=== PATIENT | male | born 1990 | race Caucasian/White ===

== ENCOUNTER 2024-03-02 17:58 | Emergency (ER) | payer SELFPAY ==
[2024-03-02 18:02] VITALS: BP 114/75; PULSE 84; RESP 17; TEMP 36.6; O2SAT 98; BMI 27.1
--- NOTE | 2024-03-02 18:31 | ECG_ITS ---
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 Measurements Intervals [place] Rate: 78 P: 54 WA: 188 QRS: 24 QRSD: 123 T: 35 QT: 380 QTc: 434 Interpretive Statements SINUS RHYTHM MODERATE INTRAVENTRICULAR CONDUCTION DELAY [110+ ms QRS DURATION] Compared to ECG 10/23/2018 15:30:50 Intraventricular conduction delay now present Sinus arrhythmia no longer present Electronically Signed On 03-03-2024 11:44:38 CDT by Carlitos Olmos M.D. [id number]
--- NOTE | 2024-03-02 18:31 | XRR_ITS ---
PROCEDURE INFORMATION: Exam: XR Chest Exam date and time: 03/02/2024 6:47 PM Age: 33 years old Clinical indication: Chest pressure; Patient HX: C/O chest pain; Additional info: Cp TECHNIQUE: Imaging protocol: Radiologic exam of the chest. Views: 1 view. COMPARISON: CR XR chest 1V [id number] 04/06/2019 8:32 AM FINDINGS: Lungs: Unremarkable. No consolidation. Pleural spaces: Unremarkable. No pleural effusion. No pneumothorax. Heart/Mediastinum: Unremarkable. No cardiomegaly. Bones/joints: Unremarkable. XR/XR chest 1V portable [id number] IMPRESSION: No acute findings.
--- NOTE | 2024-03-02 18:33 | W.ED.NAVMDI ---
Documented by User: WARREN Gurrola 03/02/24 20:15 HPI - Nausea/Vomiting/Diarrhea General: Chief complaint: Nausea/Vomiting/Diarrhea Stated complaint: N/V, Fever Time Seen by Provider: 03/02/24 18:13 Source: patient Mode of arrival: ambulatory Limitations: no limitations History of Present Illness: Patient is a 33-year-old male presenting to the emergency department complaining of nausea vomiting and diarrhea for the past 3 days. Patient is also noting some left-sided chest pain that he has had for 6 months. States he had this worked up at [facility] in [place], which saw him shipped to [facility] for further cardiac evaluation. He does not elaborate anymore on this. Currently he states he is having difficulty keeping down food and drink. Has not taken anything for his symptoms. He is noting some diffuse crampy abdominal pain. He also is noting a fever. No other symptoms to report at this time. MD elicited complaint: nausea, vomiting, diarrhea and abdominal pain Onset (ago): day(s) Associated nausea: Yes Associated abdominal pain: Yes Location of pain: Diffuse Quality: cramping Associated symtoms: Reports nausea; Denies change in vision, chest pain, dysuria, fatigue, headache(s) or palpitations Review of Systems General: Reports: 10 or more systems reviewed and unremarkable except in HPI and below Const: Reports: fever(s); Denies: chills or fatigue Eyes: Denies: change in vision ENMT: Denies: throat pain, ear or mastoid pain or nasal discharge Card: Denies: chest pain, palpitations, swelling of feet/ankles or lightheadedness Resp: Denies: dyspnea, productive cough or wheezing GI: Reports: abdominal pain, nausea, vomiting, diarrhea and GI cramping : Denies: flank pain, difficulty urinating, dysuria or urinary frequency Musc: Denies: neck pain, back pain or joint pain Skin/Breast: Denies: rash Neuro: Denies: headache(s), numbness in extremities or weakness in extremities Physical Exam Const: COMMON NORMALS: no acute distress, average body habitus, patient oriented x3, no limitations, healthy appearing, alert and well nourished GENERAL APPEARANCE: cooperative and comfortable ORIENTATION/CONSCIOUSNESS: Yes awake HENMT: COMMON NORMALS: normocephalic, atraumatic, hearing grossly normal bilaterally, external ears normal, Normal external nose present, Normal nasal mucous membranes and turbinates present and moist oral mucous membranes HEAD & SCALP: normocephalic and atraumatic NOSE: Normal external nose present and Normal nasal mucous membranes and turbinates present EXTERNAL EAR: Yes external ears normal Eye: COMMON NORMALS: Equal, round and reactive pupils present, EOMs intact bilaterally, conjunctivae normal and normal visual andrade by confrontation CONJUNCTIVA: Yes conjunctivae normal PUPIL: Yes Equal, round and reactive pupils present Neck/C-Spine: COMMON NORMALS: full ROM, supple, no meningeal signs and no JVD Resp: COMMON NORMALS: normal respiratory effort, No retractions, No use of accessory muscles and clear to auscultation bilaterally AUSCULTATION: clear to auscultation bilaterally, no crackles, no rales, no rhonchi and no wheezes Cardio: COMMON NORMALS: no JVD, regular rate, regular rhythm, S1 normal heart sound present, S2 normal heart sound present, No gallops present (Cardio), No clicks present (Cardio), No murmurs present (Cardio), No rub (Cardio) and Peripheral pulses 2+ throughout RATE: regular rate RHYTHM: regular rhythm HEART SOUNDS: S1 normal heart sound present and S2 normal heart sound present PERIPHERAL PULSES: Peripheral pulses 2+ throughout GI: COMMON NORMALS: Normal to inspection, nondistended, normoactive bowel sounds present, Soft to palpation, No hepatosplenomegaly present and no masses AUSCULTATION: Yes normoactive bowel sounds PALPATION: Yes Soft to palpation, Yes Tenderness to palpation present (GI) (Diffuse, mild), No Guarding due to palpation present (GI), No Rigid due to palpation and Yes No hepatosplenomegaly present RECTAL EXAM: Yes deferred : COMMON NORMALS: Yes no CVA tenderness BLADDER/KIDNEY EXAM: Yes no CVA tenderness Back/Pelvis: COMMON NORMALS: no CVA tenderness Extremity: COMMON NORMALS: normal to inspection and full ROM Neuro: COMMON NORMALS: patient oriented x3, moves all extremities, no focal motor deficits and no sensory deficits noted SENSORIUM/ORIENTATION: Yes alert MENINGEAL SIGNS: Yes no meningeal signs Psych: COMMON NORMALS: mental status grossly normal, cooperative and speech normal SPEECH: Yes normal speech Skin: COMMON NORMALS: no rashes or lesions noted GENERAL SKIN EXAM: no rashes or lesions noted Course Vital Signs: Vital signs: Vital Signs Temperature 98 F 03/02/24 20:30 Pulse Rate 79 03/02/24 20:30 Respiratory Rate 16 03/02/24 20:30 Blood Pressure 116/72 03/02/24 20:30 Pulse Oximetry 99 03/02/24 20:30 Oxygen Delivery Me thod Room Air 03/02/24 18:02 MDM - Nausea/Vomiting/Diarrhea Medical Decision Making Patient presented for nausea vomiting and diarrhea for the past few days. On arrival vitals unremarkable as he was afebrile and his condition has remained stable throughout ED course. Examination unremarkable. He was reporting some left-sided chest pain, though this has been chronic for the past 6 months and has been worked up prior. Chest x-ray and EKG were unremarkable. His lab work was unremarkable. Respiratory panel currently pending. I do believe patient is dealing with a viral gastroenteritis and he does report feeling better after receiving bolus of fluids and Reglan. Will send home with nausea medications with proper return precautions given. Patient will follow-up primary care. Lab Data 03/02/24 18:50 03/02/24 18:50 Radiology Impressions Chest X-Ray 03/02/24 18:31 IMPRESSION: No acute findings. Laboratory Results WBC 8.09 10^3/uL (3.29-11.43) 03/02/24 18:50 RBC 4.80 10^6/uL (3.85-5.65) 03/02/24 18:50 Hgb 14.60 g/dL (11.27-16.99) 03/02/24 18:50 Hct 43.7 % (37-53) 03/02/24 18:50 MCV 91.0 fl (82-101) 03/02/24 18:50 MCH 30.4 pg (27-33) 03/02/24 18:50 MCHC 33.4 g/dL (30-55) 03/02/24 18:50 RDW 13.0 % (12.1-15.1) 03/02/24 18:50 Plt Count 275 10^3/cmm (157-399) 03/02/24 18:50 MPV 10.4 fL (7.4-10.4) 03/02/24 18:50 Neut % (Auto) 63.9 % 03/02/24 18:50 Lymph % (Auto) 22.2 % 03/02/24 18:50 [place] % (Auto) 12.1 % 03/02/24 18:50 Eos % (Auto) 1.1 % 03/02/24 18:50 Baso % (Auto) 0.6 % 03/02/24 18:50 Neut # (Auto) 5.16 10^3/uL (1.8-7.7) 03/02/24 18:50 Lymph # (Auto) 1.8 10^3/uL (0.8-4.8) 03/02/24 18:50 [place] # (Auto) 1.0 10^3/uL (0.2-0.9) H 03/02/24 18:50 Eos # (Auto) 0.1 10^3/uL (0.0-0.8) 03/02/24 18:50 Baso # (Auto) 0.1 10^3/uL (0.0-0.1) 03/02/24 18:50 Nucleated RBC % (auto) 0 % 03/02/24 18:50 Nucleated RBCs # 0.0 /100WBC 03/02/24 18:50 Sodium 140 mmol/L (136-145) 03/02/24 18:50 Potassium 3.4 mmol/L (3.5-5.1) L 03/02/24 18:50 Chloride 100 mmol/L (98-107) 03/02/24 18:50 Carbon Dioxide 30 mmol/L (22-29) H 03/02/24 18:50 Anion Gap 13.4 (5-19) 03/02/24 18:50 BUN 16 mg/dL (6-20) 03/02/24 18:50 Creatinine 0.9 mg/dL (0.7-1.2) 03/02/24 18:50 GFR Calculation 96.6 mL/min (90-130) 03/02/24 18:50 Glucose 100 mg/dL (65-115) 03/02/24 18:50 Calculated Osmolality 291 mOsm/kg (285-295) 03/02/24 18:50 Calcium 8.4 mg/dL (8.5-10.5) L 03/02/24 18:50 Total Bilirubin 0.2 mg/dL (0.15-1.2) 03/02/24 18:50 AST 25 U/L (0-40) 03/02/24 18:50 ALT 26 U/L (0-41) 03/02/24 18:50 Alkaline Phosphatase 98 U/L (40-130) 03/02/24 18:50 Total Protein 7.1 g/dL (6.6-8.7) 03/02/24 18:50 Albumin 4.2 g/dL (3.5-5.2) 03/02/24 18:50 Globulin 2.9 g/dL (1.3-4.6) 03/02/24 18:50 Lipase 20 U/L (13-60) 03/02/24 18:50 Urine Color Dark yellow (Yellow) 03/02/24 18:50 Urine Appearance Clear (CLEAR) 03/02/24 18:50 Urine pH 5 (5-7) 03/02/24 18:50 Ur Specific P[place] 1.025 (1.005-1.030) 03/02/24 18:50 Urine Protein Neg (Negative) 03/02/24 18:50 Urine Glucose (UA) Norm (Normal) 03/02/24 18:50 Urine Ketones Negative (Negative) 03/02/24 18:50 Urine Blood Neg (Negative) 03/02/24 18:50 Urine Nitrate Negative (Negative) 03/02/24 18:50 Urine Bilirubin 1+ (Negative) H 03/02/24 18:50 Urine Urobilinogen 4 mg/dL (Negative) H 03/02/24 18:50 Ur Leukocyte Esterase Negative (Negative) 03/02/24 18:50 Adenovirus (PCR) Not detected (NOT DETECT) 03/02/24 19:00 C. pneumoniae DNA (PCR) Not detected (NOT DETECT) 03/02/24 19:00 Coronavirus 229E (PCR) Not detected (NOT DETECT) 03/02/24 19:00 Human Metapneumovir PCR Not detected (NOT DETECT) 03/02/24 19:00 Influenza A (H1) PCR Not detected (NOT DETECT) 03/02/24 19:00 Influ A (H1/09) PCR Not detected (NOT DETECT) 03/02/24 19:00 Influenza A (H3) PCR Not detected (NOT DETECT) 03/02/24 19:00 Influenza Type A (PCR) Not detected (NOT DETECT) 03/02/24 19:00 Influenza Type B (PCR) Not detected (NOT DETECT) 03/02/24 19:00 M. pneumoniae (PCR) Not detected (NOT DETECT) 03/02/24 19:00 Parainfluenza 1 (PCR) Not detected (NOT DETECT) 03/02/24 19:00 Parainfluenza 2 (PCR) Not detected (NOT DETECT) 03/02/24 19:00 Parainfluenza 3 (PCR) Not detected (NOT DETECT) 03/02/24 19:00 Parainfluenza 4 (PCR) Not detected (NOT DETECT) 03/02/24 19:00 RSV Type A (PCR) Not detected (NOT DETECT) 03/02/24 19:00 RSV Type B (PCR) Not detected (NOT DETECT) 03/02/24 19:00 Entero/Rhino (PCR) Not detected (NOT DETECT) 03/02/24 19:00 SARS-CoV-2 (PCR) Not detected (NOT DETECT) 03/02/24 19:00 All radiology interpretation(s) finalized by discharge Discharge Plan Discharge Patient Disposition: Home Clinical Impression: Viral gastroenteritis Condition: Stable Prescriptions: New ondansetron HCl 4 mg tablet 4 mg PO Q8H Qty: 30 0RF Discharge Orders: Discharge ED (Routine); Ordered 03/02/24 Ordered By: Antonio Vallejo Referrals: Karli Matamoros MD [Primary Care Provider] - Discharge Diet: As Directed Discharge Activity: Increase activity as tolerated Patient Instructions: Gastroenteritis (ED) Activity Restrictions/Additional Instructions: Nausea medications. Plenty of fluids. Contagion precaution. Return with any new or worsening. Follow-up with primary care. Coding Level of Care Code ED Electrical Parts Reconditioner for Chg Fwd Documented by User: Ishmael Stearns DO 03/04/24 16:55 HPI - Nausea/Vomiting/Diarrhea General: Chief complaint: Nausea/Vomiting/Diarrhea Stated complaint: N/V, Fever Time Seen by Provider: 03/02/24 18:13 Course Vital Signs: Vital signs: Vital Signs Temperature 98 F 03/02/24 20:30 Pulse Rate 79 03/02/24 20:30 Respiratory Rate 16 03/02/24 20:30 Blood Pressure 116/72 03/02/24 20:30 Pulse Oximetry 99 03/02/24 20:30 Oxygen Delivery Me thod Room Air 03/02/24 18:02 MDM - Nausea/Vomiting/Diarrhea Medical Decision Making Patient presented for nausea vomiting and diarrhea for the past few days. On arrival vitals unremarkable as he was afebrile and his condition has remained stable throughout ED course. Examination unremarkable. He was reporting some left-sided chest pain, though this has been chronic for the past 6 months and has been worked up prior. Chest x-ray and EKG were unremarkable. His lab work was unremarkable. Respiratory panel currently pending. I do believe patient is dealing with a viral gastroenteritis and he does report feeling better after receiving bolus of fluids and Reglan. Will send home with nausea medications with proper return precautions given. Patient will follow-up primary care. Chart reviewed Lab Data 03/02/24 18:50 03/02/24 18:50 Radiology Impressions Chest X-Ray 03/02/24 18:31 IMPRESSION: No acute findings. Laboratory Results WBC 8.09 10^3/uL (3.29-11.43) 03/02/24 18:50 RBC 4.80 10^6/uL (3.85-5.65) 03/02/24 18:50 Hgb 14.60 g/dL (11.27-16.99) 03/02/24 18:50 Hct 43.7 % (37-53) 03/02/24 18:50 MCV 91.0 fl (82-101) 03/02/24 18:50 MCH 30.4 pg (27-33) 03/02/24 18:50 MCHC 33.4 g/dL (30-55) 03/02/24 18:50 RDW 13.0 % (12.1-15.1) 03/02/24 18:50 Plt Count 275 10^3/cmm (157-399) 03/02/24 18:50 MPV 10.4 fL (7.4-10.4) 03/02/24 18:50 Neut % (Auto) 63.9 % 03/02/24 18:50 Lymph % (Auto) 22.2 % 03/02/24 18:50 [place] % (Auto) 12.1 % 03/02/24 18:50 Eos % (Auto) 1.1 % 03/02/24 18:50 Baso % (Auto) 0.6 % 03/02/24 18:50 Neut # (Auto) 5.16 10^3/uL (1.8-7.7) 03/02/24 18:50 Lymph # (Auto) 1.8 10^3/uL (0.8-4.8) 03/02/24 18:50 [place] # (Auto) 1.0 10^3/uL (0.2-0.9) H 03/02/24 18:50 Eos # (Auto) 0.1 10^3/uL (0.0-0.8) 03/02/24 18:50 Baso # (Auto) 0.1 10^3/uL (0.0-0.1) 03/02/24 18:50 Nucleated RBC % (auto) 0 % 03/02/24 18:50 Nucleated RBCs # 0.0 /100WBC 03/02/24 18:50 Sodium 140 mmol/L (136-145) 03/02/24 18:50 Potassium 3.4 mmol/L (3.5-5.1) L 03/02/24 18:50 Chloride 100 mmol/L (98-107) 03/02/24 18:50 Carbon Dioxide 30 mmol/L (22-29) H 03/02/24 18:50 Anion Gap 13.4 (5-19) 03/02/24 18:50 BUN 16 mg/dL (6-20) 03/02/24 18:50 Creatinine 0.9 mg/dL (0.7-1.2) 03/02/24 18:50 GFR Calculation 96.6 mL/min (90-130) 03/02/24 18:50 Glucose 100 mg/dL (65-115) 03/02/24 18:50 Calculated Osmolality 291 mOsm/kg (285-295) 03/02/24 18:50 Calcium 8.4 mg/dL (8.5-10.5) L 03/02/24 18:50 Total Bilirubin 0.2 mg/dL (0.15-1.2) 03/02/24 18:50 AST 25 U/L (0-40) 03/02/24 18:50 ALT 26 U/L (0-41) 03/02/24 18:50 Alkaline Phosphatase 98 U/L (40-130) 03/02/24 18:50 Total Protein 7.1 g/dL (6.6-8.7) 03/02/24 18:50 Albumin 4.2 g/dL (3.5-5.2) 03/02/24 18:50 Globulin 2.9 g/dL (1.3-4.6) 03/02/24 18:50 Lipase 20 U/L (13-60) 03/02/24 18:50 Urine Color Dark yellow (Yellow) 03/02/24 18:50 Urine Appearance Clear (CLEAR) 03/02/24 18:50 Urine pH 5 (5-7) 03/02/24 18:50 Ur Specific [place] 1.025 (1.005-1.030) 03/02/24 18:50 Urine Protein Neg (Negative) 03/02/24 18:50 Urine Glucose (UA) Norm (Normal) 03/02/24 18:50 Urine Ketones Negative (Negative) 03/02/24 18:50 Urine Blood Neg (Negative) 03/02/24 18:50 Urine Nitrate Negative (Negative) 03/02/24 18:50 Urine Bilirubin 1+ (Negative) H 03/02/24 18:50 Urine Urobilinogen 4 mg/dL (Negative) H 03/02/24 18:50 Ur Leukocyte Esterase Negative (Negative) 03/02/24 18:50 Adenovirus (PCR) Not detected (NOT DETECT) 03/02/24 19:00 C. pneumoniae DNA (PCR) Not detected (NOT DETECT) 03/02/24 19:00 Coronavirus 229E (PCR) Not detected (NOT DETECT) 03/02/24 19:00 Human Metapneumovir PCR Not detected (NOT DETECT) 03/02/24 19:00 Influenza A (H1) PCR Not detected (NOT DETECT) 03/02/24 19:00 Influ A (H1/09) PCR Not detected (NOT DETECT) 03/02/24 19:00 Influenza A (H3) PCR Not detected (NOT DETECT) 03/02/24 19:00 Influenza Type A (PCR) Not detected (NOT DETECT) 03/02/24 19:00 Influenza Type B (PCR) Not detected (NOT DETECT) 03/02/24 19:00 M. pneumoniae (PCR) Not detected (NOT DETECT) 03/02/24 19:00 Parainfluenza 1 (PCR) Not detected (NOT DETECT) 03/02/24 19:00 Parainfluenza 2 (PCR) Not detected (NOT DETECT) 03/02/24 19:00 Parainfluenza 3 (PCR) Not detected (NOT DETECT) 03/02/24 19:00 Parainfluenza 4 (PCR) Not detected (NOT DETECT) 03/02/24 19:00 RSV Type A (PCR) Not detected (NOT DETECT) 03/02/24 19:00 RSV Type B (PCR) Not detected (NOT DETECT) 03/02/24 19:00 Entero/Rhino (PCR) Not detected (NOT DETECT) 03/02/24 19:00 SARS-CoV-2 (PCR) Not detected (NOT DETECT) 03/02/24 19:00 Discharge Plan Discharge Patient Disposition: Home Clinical Impression: Viral gastroenteritis Condition: Stable Prescriptions: New ondansetron HCl 4 mg tablet 4 mg PO Q8H Qty: 30 0RF Discharge Orders: Discharge ED (Routine); Ordered 03/02/24 Ordered By: Antonio Vallejo Referrals: Karli Matamoros MD [Primary Care Provider] - Discharge Diet: As Directed Discharge Activity: Increase activity as tolerated Patient Instructions: Gastroenteritis (ED) Activity Restrictions/Additional Instructions: Nausea medications. Plenty of fluids. Contagion precaution. Return with any new or worsening. Follow-up with primary care. Coding Level of Care Code ED Electrical Parts Reconditioner for Rena Garcia
[2024-03-02 19:00] LABS: Basophils # 0.1 10^3/uL (0.0-0.1); Basophils % 0.6 %; Eosinophils # 0.1 10^3/uL (0.0-0.8); Eosinophils % 1.1 %; Hematocrit 43.7 % (37-53); Lymphocytes # 1.8 10^3/uL (0.8-4.8); Lymphocytes % 22.2 %; Mean Corpuscular HGB Conc 33.4 g/dL (30-55); Mean Corpuscular Hemoglobin 30.4 pg (27-33); Mean Platelet Volume 10.4 fL (7.4-10.4); Monocytes % 12.1 %; Neutrophils # 5.16 10^3/uL (1.8-7.7); Neutrophils % 63.9 %; Nucleated Red Blood Cells % 0 %; Platelet Count 275 10^3/cmm (157-399); White Blood Count 8.09 10^3/uL (3.29-11.43)
[2024-03-02 19:01] LABS: Add Urine Microscopic? NO; Charge for UA Resulting for Rev
[2024-03-02 19:02] LABS: Bilirubin Urine 1+ (Negative); Blood Urine Neg (Negative); Glucose Urine UA Norm (Normal); Ketones Urine Negative (Negative); Leukocyte Esterase Urine Negative (Negative); Nitrate Urine Negative (Negative); Protein Urine Neg (Negative); Specific Gravity, Urine 1.025 (1.005-1.030); Urine Appearance Clear (CLEAR); Urine Color Dark Yellow (Yellow); Urobilinogen Urine 4 mg/dL (Negative); pH Urine 5 (5-7)
[2024-03-02] MEDS: metoclopramide 5 mg/mL SDV 2 mL 10 MG IVP (19:06)
[2024-03-02] MEDS: sodium chloride 0.9% 1,000 ML 999 ML IV (19:06)
[2024-03-02 19:18] LABS: Alanine Aminotransferase 26 U/L (0-41); Albumin Level 4.2 g/dL (3.5-5.2); Alkaline Phosphatase 98 U/L (40-130); Anion Gap 13.4 (5-19); Aspartate Amino Transferase 25 U/L (0-40); Blood Urea Nitrogen 16 mg/dL (6-20); Calcium 8.4 mg/dL (8.5-10.5); Carbon Dioxide 30 mmol/L (22-29); Chloride 100 mmol/L (98-107); Creatinine Clr Calc Pharmacy 143.3611; Globulin 2.9 g/dL (1.3-4.6); Glomerular Filtration Rate 96.6 mL/min (90-130); Glucose 100 mg/dL (65-115); Lipase 20 U/L (13-60); Osmolality Calculated 291 mOsm/kg (285-295); Potassium 3.4 mmol/L (3.5-5.1); Sodium 140 mmol/L (136-145); Total Bilirubin 0.2 mg/dL (0.15-1.2); Total Protein 7.1 g/dL (6.6-8.7)
[2024-03-02] MEDS: ondansetron 2 mg/ML SDV 2 mL 4 MG IVP (20:19)
[2024-03-02 20:30] VITALS: BP 116/72; PULSE 79; RESP 16; TEMP 36.6; O2SAT 99
[2024-03-02 20:50] LABS: Adenovirus Not Detected (NOT DETECT); Chlamydia Pneumoniae Not Detected (NOT DETECT); Coronavirus 229E,HKU1,NL63,OC4 Not Detected (NOT DETECT); Human Metapneumovirus Not Detected (NOT DETECT); Human Rhinovirus/Enterovirus Not Detected (NOT DETECT); Influenza A Not Detected (NOT DETECT); Influenza A H1 Not Detected (NOT DETECT); Influenza A H1-2009 Not Detected (NOT DETECT); Influenza A H3 Not Detected (NOT DETECT); Influenza B Not Detected (NOT DETECT); Mycoplasma Pneumoniae Not Detected (NOT DETECT); Parainfluenza Virus Type 1 Not Detected (NOT DETECT); Parainfluenza Virus Type 2 Not Detected (NOT DETECT); Parainfluenza Virus Type 3 Not Detected (NOT DETECT); Parainfluenza Virus Type 4 Not Detected (NOT DETECT); Respiratory Syncytial Virus A Not Detected (NOT DETECT); Respiratory Syncytial Virus B Not Detected (NOT DETECT); SARS-COV-2 Not Detected (NOT DETECT)
== END 2024-03-02 20:30 | disposition home or self-care (01) ==
PROVIDERS: Emergency Provider Physician Assistant; PCP Family Medicine
DX: A08.4 Viral intestinal infection, unspecified (principal); Z11.52 Encounter for screening for COVID-19
CPT/HCPCS: 71045; 80053; 81003; 83690; 85025; 87486; 87581; 87633; 93005; 96361; 96374; 96375; 99285; J2405; J2765; J7030

== ENCOUNTER → 2025-06-18 10:18 | Outpatient (BNVA) | payer SELFPAY | PROVIDERS: PCP Family Medicine; Visit Provider Nurse Practitioner | DX: R25.2 Cramp and spasm (principal) | CPT/HCPCS: 80053; 83735; 84443 ==

== ENCOUNTER 2025-08-31 10:42 | Emergency (ER) | payer SELFPAY ==
--- OUTSIDE RECORDS SUMMARY | 2025-08-31 10:46 | XMS_ITS | Clinical Summary ---
Author Organization [facility] Address [address] [facility] Attn: Epic Prelude ADT [place] THOMAS [address] Care Team Providers Care Duct Layer Helper Name Role Phone Unavailable Primary Care Provider Unavailabl e Allergies No known active allergies Medications aspirin (ECOTRIN EC) 81 mg Tablet, Delayed Release (E.C.) Take 81 mg by mouth daily. Patient has taken 2 baby aspirins today; does not take these normally Active clindamycin HCL (CLEOCIN) 300 mg Capsule Take 1 Capsule (300 mg) by mouth 4 times daily TO DISPENSE FROM ER. 2 Capsule 0 07/19/2018 Active traMADoL (ULTRAM) 50 mg tablet Take 1 Tablet (50 mg) by mouth every 6 hours as needed for Pain, Moderate. 8 Tablet 0 07/19/2018 Active oxyCODONE-aceta minophen (PERCOCET) 5-325 mg tablet Take 1 Tablet by mouth every 4 hours as needed for Pain, Moderate TO DISPENSE FROM ER. Max Daily Amount: 6 Tablets 3 Tablet 0 07/19/2018 Active clindamycin HCL (CLEOCIN) 300 mg Capsule Take 1 Capsule (300 mg) by mouth 4 times daily. 26 Capsule 0 07/19/2018 Active Active Problems Problem Noted Date Diagnosed Date Petechial rash 04/23/2022 Chest pain 04/23/2022 Tobacco dependence 04/23/2022 Neuropathy 04/23/2022 Encounters Date Type Department Care Team Description 07/30/2025 External Device Data [facility] ABSTRACTION Provider, Abstract 07/29/2025 External Device Data [facility] ABSTRACTION Provider, Abstract 06/10/2025 External Device Data [facility] ABSTRACTION Provider, Abstract from Last 3 Months Immunizations Immunization Administration Dates Next Due (ADACEL/BOOSTRIX)(10 YR UP) TDAP VACCINE, 0.5ML, IM 07/17/2018 Hepatitis B Vaccine 08/08/2001 Family History Medical History Relation Name Comments Diabetes Maternal Grandfather Heart Disease Mother Relation Name Status Comments Father Alive Maternal Grandfather Mother Alive Social History Tobacco Use Types Packs/Day Years Used Date Smoking Tobacco: Every Day Cigarettes 2 20 Passive Smoke Exposure: Current Smokeless Tobacco: Current Tobacco Cessation:Ready to Q uit: No; Counseling Given: Yes Alcohol Use Standard Drinks/Week Comments No 0 (1 standard drink = 0.6 oz pur e alcohol) Sex and Gender Information Value Date Recorded Sex Assigned at Not on file 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 Gender Identity Not on file Sexual Orientation Not on file Last Filed Vital Signs Vital Sign Reading Time Taken Comments Blood Pressure 126/72 02/10/2025 10:05 AM CDT Pulse 96 02/10/2025 10:05 AM CDT Temperature 36.2 C (97.2 F) 02/10/2025 10:05 AM CDT Respiratory Rate 18 02/10/2025 10:0 5 AM CDT Oxygen Saturation 95% 02/10/2025 10: 05 AM CDT Inhaled Oxygen Concentration - - Weight 109.2 kg (240 lb 12.8 oz) 2024 10:05 AM CDT Height 188 cm (6' 2 ) 02/10/2025 10:05 AM CDT Body Mass Index 30.92 02/10/2025 10:05 AM CDT Plan of Treatment Health Maintenance Due Date Last Done Comments HEPATITIS B VACCINES (2 of 3 - 3-dose series) 09/05/2001 08/08/2001, 08/08/2001 HPV VACCINES (1 - 3-dose SCD M series) 2016 Pre-Diabetes and Diabetes Screening 04/24/2025 04/24/2022 INFLUENZA VACCINE (#1) 2025 DTAP/TDAP/TD VACCINES (7 - T d or Tdap) 07/17/2028 07/17/2018, 05/30/1995, 11/07/1992, Additional history exists Procedures Procedure Name Priority Date/Time Associated Diagnosis Comments HEMOGLOBIN A1C Routine 04/24/2022 1:10 AM CDT from Last 3 Months or Most Recently Relevant to Health Maintenance Results * HEMOGLOBIN A1C (04/24/2022 1:10 AM CDT) HEMOGLOBIN A1C 5.3 <=5.6 % 04/24/2022 1:40 AM CDT [facility] [employer] [facility] BRITTANIERAULSALAZAR EST. AVG GLUCOSE, A1C 105 mg/dL 04/24/2022 1:40 AM T [facility] CARLOS ENRIQUE Blood BLOOD SPECIMEN / Unknown Venipuncture / Unknown 04/24/2022 1:10 AM CDT 04/24/2022 1:20 AM CDT Narrative [facility] BRITTANIERAULSALAZAR - 04/24/2022 1:40 AM CDT HGB A1C INTERPRETATION NORMAL: <5.7% PRE-DIABETES: 5.7 - 6.4% DIABETES: 6.5% OR GREATER Claudette Gomez DO CHEMISTRY ORDERABLES Fin al Result [facility] CARLOS ENRIQUE [facility] # [id number] [address] [place], [place] [address]kimberly [facility] TALON Castañeda [id number] from Last 3 Months or Most Recently Relevant to Health Maintenance Advance Directives For more information, please contact: [phone] * Full Code (Latest Code Status on File) Date Activated Date Inactivated Comments 04/24/2022 1:00 AM 04/24/2022 10:31 PM
--- OUTSIDE RECORDS SUMMARY | 2025-08-31 10:46 | XMS_ITS | Clinical Summary ---
Author Organization [facility]i [facility] Address [address] [place] [address] Phone Care Team Providers Care Roller Hand Name Role Phone Dave Yung MD Primary Care Provider [phone] Allergies No known active allergies Medications ibuprofen (ADVIL) 200 mg Oral tablet Take 400 mg by mouth 1 time daily as needed. Active clindamycin HCl (CLEOCIN) 300 mg Capsule Take 1 Capsule (300 mg) by mouth 4 times daily TO DISPENSE FROM ER. 2 Capsule 07/19/2018 Active clindamycin (CLEOCIN) 300 mg Capsule Take 1 Capsule (300 mg) by mouth 4 times daily. 26 Capsule 07/19/2018 Active oxyCODONE-aceta minophen (PERCOCET) 5-325 mg tablet Take 1 Tablet by mouth every 4 hours as needed for Pain, Moderate TO DISPENSE FROM ER. Max Daily Amount: 6 Tablets 3 Tablet 07/19/2018 Active traMADol (ULTRAM) 50 mg tablet Take 1 Tablet (50 mg) by mouth every 6 hours as needed for Pain, Moderate. 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 Gender Identity Not on file Sexual Orientation Not on file Occupation Industry Job Start Date Job End Date Not on file Not on file Not on file Not on file Last Filed Vital Signs Vital Sign Reading Time Taken Comments Blood Pressure 118/73 07/19/2018 10:33 PM CDT Pulse 80 05/22/2014 3:30 PM CDT Temperature 37.6 C (99.6 F) 07/19/2018 10:33 PM CDT Respiratory Rate 16 07/19/2018 10:3 3 PM CDT Oxygen Saturation 96% 07/19/2018 10: 33 PM CDT Inhaled Oxygen Concentration - - Weight 98.7 kg (217 lb 11.2 oz) 07/19/2018 8:12 PM CDT Height 185.4 cm (6' 1 ) 07/19/2018 8:12 PM CDT Body Mass Index 28.72 07/19/2018 8:12 PM CDT Plan of Treatment Health Maintenance Due Date Last Done Comments HEPATITIS B VACCINES (2 of 3 - 3-dose series) 09/05/2008/08/2001 HPV VACCINES (1 - 3-dose SCDM series) 2016 INFLUENZA VACCINE (#1) 2025 DTAP/TDAP/TD VACCINES (2 - Td or Tdap) 07/17/2028 Care Teams Roller Hand Relationship Specialty Start Date End Date Dave Yung MD [address] [place] [address] PCP - General Family Practice 07/08/13
--- OUTSIDE RECORDS SUMMARY | 2025-08-31 10:47 | XMS_ITS | Encounter Summary ---
Author Organization [facility] Address [address] [place] [address] Care Team Providers Care Urban Forester Name Role Phone Dave Yung MD Primary Care Provider Encounter Details Date Type Department Care Team (Latest Contact Info) Description 10/20/2003 Outpatient Historical [facility] E [employer] [place] [address] [place] [address] Allie Plummer AU.D NO ADDRESS ON FILE OBSERVATN SUSPECT CONDN OTHER,SPEC (Primary Dx) Social History Tobacco Use Types Packs/Day Years Used Date Smoking Tobacco: Never Assessed Sex and Gender Information Value Date Recorded Sex Assigned at Not on file Legal Sex Male 4:53 AM [employer] Gender Identity Not on file Sexual Orientation Not on file documented as of this encounter Plan of Treatment Not on file documented as of this encounter Visit Diagnoses Diagnosis Observation for other specified suspected conditions- Primary documented in this encounter Care Teams Urban Forester Relationship Specialty Start Date End Date Dave Yung MD [address] [place] [address] PCP - General Family Practice 07/08/13 documented as of this encounter
--- OUTSIDE RECORDS SUMMARY | 2025-08-31 10:47 | XMS_ITS | Continuity of Care Document ---
Author Organization [facility] Arpit Castro [facility] Joanna Torres, [facility] ([facility]) Address [address] [place] [address] Assessment No assessment recorded. Plan of Treatment Reminders Order Date Submit Date Provider Last Modified By Organization Details Last Modified Time Details Appointments None recorded. Lab None recorded. Referral orthopedic surgeon referral 2024 025 [email or web address] 2 Erin Russo MD, [address] [place], [address], 10:23:32 Procedures None recorded. Surgeries None recorded. Imaging XR, knee, 3 view 2024 025 [email or web address] 2 [facility] ([facility]), [address] [place], [address], 16:30:55 Medication Orders None recorded. Patient TargetsNo targets recorded. Patient InstructionsNo instructions recorded. Reason for Referral Orthopedic Surgeon Referral for Pain of knee region Referring Physician: Gerda Kaur, Family Medicine, Encounter Date: 07/31/2025 Results Created Date Observation Date Name Description Value Unit Range Abnormal Flag Note LastModifiedBy Organization Detail LastModifiedTime 08/01/2007/31/2025 XR, knee, 3 view No observ ation record ed. [facility] [address] [place], [address], 08/01/2025 10:23:50 Result Notes None recorded. Medical Equipment None Reported. Allergies No known drug allergies Medications Not known to be on any medication Vitals Date Recorded Body weight Body mass index (BMI) Body height Body temperature Heart rate Oxygen saturation Systolic And Diastolic Provider Name and Address Organization Details Last Updated DateTime 641030. 87 g 34.3 kg/m2 182.88 cm 98.1 [degF] 95 /min 98 % 142/76 mm[Hg] Charisse Bennett [facility] 13:53:33 Social History Question Answer Notes LastModified by [employer] Details LastModified Time Tobacco Smoking Status Former Smoker Charisse Bennett [facility] 07/31/2025 13:48:11 What Was The Date Of Your Most Recent Tobacco Screening? 07/31/2025 [email or web address] Information not available 07/31/2025 Sex: Unknown Functional Status Question Answer Note LastModified by [employer] Details LastModified Time Do you or have you ever used any other forms of tobacco or nicotine? Yes [email or web address] Information not available 07/31/2025 Do you or have you ever used e-cigarettes or vape? Current user of electronic cigarettes [email or web address] Information not available 07/31/2025 Mental Status None recorded. Family History Nothing Reported. Medical History No medical history recorded. Immunizations Vaccine Type Date Status Note Provider Nam e and Address Organization Details Recorded Time DTaP, 5 pertussis antigens 9 completed Not Available [facility] 07/31/2025 13:14:33 polio, unspecified formulation 9 completed Not Available [facility] 07/31/2025 13:14:33 DTaP, 5 pertussis antigens 0 completed Not Available [facility] 07/31/2025 13:14:33 polio, unspecified formulation 0 completed Not Available [facility] 07/31/2025 13:14:33 DTaP, 5 pertussis antigens 0 completed Not Available [facility] 07/31/2025 13:14:33 MMR 3 completed Not Available [facility] 07/31/2025 13:14:33 DTP 3 completed Not Available [facility] 07/31/2025 13:14:33 OPV, trivalent 3 completed Not Available [facility] 07/31/2025 13:14:33 DTP 5 completed Not Available [facility] 07/31/2025 13:14:33 OPV, trivalent 5 completed Not Available [facility] 07/31/2025 13:14:33 MMR 5 completed Not Available [facility] 07/31/2025 13:14:33 Hep B, adolescent/high risk 1 completed Not Available [facility] 07/31/2025 13:14:33 Tdap 1 completed Not Available [facility] 07/31/2025 13:14:33 Tdap 8 completed Not Available [facility] 07/31/2025 13:14:33 Past Encounters Encounter ID Performer Location Encounter Start Date Encounter Closed Date Diagnosis/Indication Diagnosis SNOMED-CT Code Diagnosis ICD10 Code Diagnosis IMO Codes Diagnosis Note [id number] MARY ISABEL [facility] ([facility]) [address] [place] [phone] 07/31/2025 13:14:03 07/31/2025 14:49:22 Pain of knee region 4992463494 M25.561 [id number] Will send X ray to radiology. Heriberto wrap refused at this time. RICE. OTC Aleve as needed for pain. RTC with any new or worsening symptoms. Health Concerns Section Related Observation LastModified by Organization Detai ls LastModified Time None Recorded Concern Status LastModified by Organization Details LastModified Time None Recorded Payers Encounter Date Sequence Insurance Name Policy Number Policy Muñoz Covered Member ID Muñoz Member ID Guarantor Name 07/31/2025 1 *SELF PAY* Et merced Marsh Notes Date Note Type Note Provider Name and Address Organization Details Recorded Time 07/31/2025 text/html ROS as noted in the HPI walk in ptPt is having right knee and ankle pain for 1 year. Feels like it pops out of place all the time. Patient states that sometimes it will come out of place while walking and he pop it back in . This happens 3-4 times a day. Denies any swelling. Patient rates pain as 7 on 0-10 pain scale. Took tylenol last night with no relief. Patient states that its a throbbing pain at times. Over the last 2 days the pain has worsened. GERDA KAUR, [address], [address], [facility] 07/31/2025 14:38:28
--- OUTSIDE RECORDS SUMMARY | 2025-08-31 10:47 | XMS_ITS | Data Portability ---
Author Organization [facility] Arpit Randle [facility], FeliciaLAbimael, [facility] Address [address] [address] Assessment No assessment recorded. Plan of Treatment Reminders Order Date Submit Date Provider Last Modified By Organization Details Last Modified Time Details Appointments None recorded. Lab None recorded. Referral orthopedic surgeon referral 2024 025 [email or web address] 2 Erin Russo MD, [address] [place], [address], 10:23:32 Procedures None recorded. Surgeries None recorded. Imaging XR, knee, 3 view 2024 025 [email or web address] 2 [facility] ([facility]), [address] [place], [address], 16:30:55 Medication Orders None recorded. Patient TargetsNo targets recorded. Patient InstructionsNo instructions recorded. Reason for Referral Orthopedic Surgeon Referral for Pain of knee region Referring Physician: Gerda Kaur, Family Medicine, Encounter Date: 07/31/2025 Results Created Date Observation Date Name Description Value Unit Range Abnormal Flag Note LastModifiedBy Organization Detail LastModifiedTime 08/01/2007/31/2025 XR, knee, 3 view No observ ation record ed. [facility] [address] [place], [address], 08/01/2025 10:23:50 Result Notes None recorded. Medical Equipment None Reported. Allergies No known drug allergies Medications Not known to be on any medication Vitals Date Recorded Body weight Body mass index (BMI) Body height Body temperature Heart rate Oxygen saturation Systolic And Diastolic Provider Name and Address Organization Details Last Updated DateTime 999080. 87 g 34.3 kg/m2 182.88 cm 98.1 [degF] 95 /min 98 % 142/76 mm[Hg] Charisse Bennett [facility] 13:53:33 Social History Question Answer Notes LastModified by [employer] Details LastModified Time Tobacco Smoking Status Former Smoker Charisse Bennett [facility] 07/31/2025 13:48:11 What Was The Date Of Your Most Recent Tobacco Screening? 07/31/2025 [email or web address] Information not available 07/31/2025 Sex: Unknown Functional Status Question Answer Note LastModified by [employer] Details LastModified Time Do you or have you ever used any other forms of tobacco or nicotine? Yes [id number] Information not available 07/31/2025 Do you or have you ever used e-cigarettes or vape? Current user of electronic cigarettes [email or web address] Information not available 07/31/2025 Mental Status None recorded. Family History Nothing Reported. Medical History No medical history recorded. Immunizations Vaccine Type Date Status Note Provider Nam e and Address Organization Details Recorded Time DTaP, 5 pertussis antigens 9 completed Not Available [facility] 07/31/2025 13:14:33 polio, unspecified formulation 9 completed Not Available [facility] 07/31/2025 13:14:33 DTaP, 5 pertussis antigens 0 completed Not Available [facility] 07/31/2025 13:14:33 polio, unspecified formulation 0 completed Not Available [facility] 07/31/2025 13:14:33 DTaP, 5 pertussis antigens 0 completed Not Available [facility] 07/31/2025 13:14:33 MMR 3 completed Not Available [facility] 07/31/2025 13:14:33 DTP 3 completed Not Available [facility] 07/31/2025 13:14:33 OPV, trivalent 3 completed Not Available [facility] 07/31/2025 13:14:33 DTP 5 completed Not Available [facility] 07/31/2025 13:14:33 OPV, trivalent 5 completed Not Available [facility] 07/31/2025 13:14:33 MMR 5 completed Not Available [facility] 07/31/2025 13:14:33 Hep B, adolescent/high risk 1 completed Not Available [facility] 07/31/2025 13:14:33 Tdap 1 completed Not Available [facility] 07/31/2025 13:14:33 Tdap 8 completed Not Available [facility] 07/31/2025 13:14:33 Past Encounters Encounter ID Performer Location Encounter Start Date Encounter Closed Date Diagnosis/Indication Diagnosis SNOMED-CT Code Diagnosis ICD10 Code Diagnosis IMO Codes Diagnosis Note [id number] MAYR ISABEL [facility] ([facility]) [address] [place] [phone] 07/31/2025 13:14:03 07/31/2025 14:49:22 Pain of knee region [id number] M25.561 [id number] Will send X ray to radiology. Heriberto wrap refused at this time. RICE. OTC Aleve as needed for pain. RTC with any new or worsening symptoms. Health Concerns Section Related Observation LastModified by Organization Detai ls LastModified Time None Recorded Concern Status LastModified by Organization Details LastModified Time None Recorded Advance Directives Directive None Recorded Payers Insurance Date Sequence Insurance Name Policy Number Policy [...] days the pain has worsened. GERDA KAUR, [employer] [address] [place], [address], [facility], Joanna 07/31/2025 14:38:28
[2025-08-31 10:52] VITALS: BP 118/73; PULSE 70; RESP 18; TEMP 36.7; O2SAT 94
--- NOTE | 2025-08-31 11:06 | XRR_ITS ---
PROCEDURE INFORMATION: Exam: XR Chest Exam date and time: 08/31/2025 11:07 AM Age: 35 years old Clinical indication: Pain; Chest pressure; Additional info: Cp, SOB, left shoulder blade pain TECHNIQUE: Imaging protocol: Radiologic exam of the chest. Views: 1 view. COMPARISON: CR XR chest 1V portable [id number] 03/02/2024 6:47 PM FINDINGS: Lungs: No pulmonary consolidation. Pleural spaces: No pleural effusion. No pneumothorax. Heart/Mediastinum: The heart appears enlarged; this may be exaggerated by AP technique. No gross evidence of pneumomediastinum. Bones/joints: No gross fracture. XR/XR chest 1V portable [id number] IMPRESSION: The heart appears enlarged; this may be exaggerated by AP technique. The appearance is similar to prior.
--- NOTE | 2025-08-31 11:08 | ED_ITS ---
HPI - Chest Pain 2 General: Chief Complaint: Chest Pain Stated Complaint: cp, L shoulder pain Time Seen by Provider: 08/31/25 10:53 Source: patient Mode of arrival: ambulatory Limitations: no limitations History of Present Illness: Patient is a 35-year-old male with no pertinent past medical history who reports the emergency department complaining of left chest pain that began at 0930 while he was getting ready for quaker. States that he has had the pain before, 2 years ago where he was seen at [facility] in [facility], and subsequently transferred to [facility] for ACS rule out. States that while he was there he had echocardiogram and stress test that were seemingly negative, did not have any cardiac catheterization at that time. He has not had any recurrence of pain since then, he does note that his grandpa has had several heart attacks and even had first heart attack at an early age, less than 40 years of age. Patient notes accompanying shortness of breath, and states that the pain is worse with deep breathing. No exertional component. No peripheral edema, dizziness, diaphoresis, nausea/vomiting, abdominal pain, syncopal episodes, or other symptoms at this time. No recent strenuous exertion, there is no reproducibility component to his chest pain. Pain noted to radiate directly back towards his left scapula, where primarily he is having the pain at this time. No other radiation. Vitals are stable, he is nontoxic- appearing. Does not take any medications, does not see cardiology. MD complaint: chest pain Onset (ago): hour(s) Timing of current episode: constant Prior episodes: Yes Onset: during rest Pain location: left chest Pain radiation: left shoulder Severity: similar to previous episodes Quality: sharp Relieving factors: nothing Exacerbating factors: inspiration Associated symptoms: Reports dyspnea; Deny abdominal pain, fever(s), nausea, palpitations or vomiting Related Data Previous Rx's ?Medication ?Instructions ?Recorded naproxen 500 mg tablet 500 mg PO BID #30 tabs 06/18 Allergies Allergy/AdvReac Type Severity Reaction Status Date / Time No Known Allergies Allergy Verified 08/11/25 09:43 Review of Systems 2 General: Reports: 10 or more systems reviewed and unremarkable except in HPI and below Const: Denies: fever(s), chills or fatigue Eyes: Denies: change in vision ENMT: Denies: throat pain, ear or mastoid pain or nasal discharge Card: Reports: chest pain; Denies: palpitations, swelling of feet/ankles or lightheadedness Resp: Reports: dyspnea; Denies: productive cough or wheezing GI: Denies: abdominal pain, nausea, vomiting, diarrhea or constipation : Denies: flank pain, difficulty urinating, dysuria or urinary frequency Musc: Reports: back pain (left posterior shoulder); Denies: neck pain or joint pain Skin/Breast: Denies: rash Neuro: Denies: headache(s), numbness in extremities or weakness in extremities PFSH ED 2 PFSH: Social History Smoking and tobacco/nicotine status: current every day tobacco/nicotine user Physical Exam 2 Const: COMMON NORMALS: no acute distress, patient oriented x3 and no limitations GENERAL APPEARANCE: cooperative, comfortable and well developed ORIENTATION/CONSCIOUSNESS: Yes awake, Yes oriented to person, Yes oriented to place and Yes oriented to time Neck/C-Spine: COMMON NORMALS: full ROM, supple and no JVD Resp: COMMON NORMALS: normal respiratory effort, No retractions, No use of accessory muscles and clear to auscultation bilaterally AUSCULTATION: clear to auscultation bilaterally Cardio: COMMON NORMALS: no JVD, regular rate, regular rhythm, No clicks present (Cardio), No murmurs present (Cardio) and No rub (Cardio) RATE: r egular rate RHYTHM: regular rhythm GI: COMMON NORMALS: Normal to inspection, nondistended, normoactive bowel sounds present, Soft to palpation and non-tender AUSCULTATION: Yes normoactive bowel sounds PALPATION: Yes Soft to palpation RECTAL EXAM: Yes deferred Extremity: COMMON NORMALS: normal to inspection, full ROM and capillary refill normal Neuro: COMMON NORMALS: patient oriented x3, moves all extremities, no focal motor deficits and no sensory deficits noted SENSORIUM/ORIENTATION: Yes oriented to person, Yes oriented to place and Yes oriented to time Skin: COMMON NORMALS: no rashes or lesions noted GENERAL SKIN EXAM: no rashes or lesions noted Course 2 Vital Signs: Vital signs: Vital Signs Temperature 98.1 F 08/31/25 10:52 Pulse Rate 70 08/31/25 10:52 Respiratory Rate 18 08/31/25 10:52 Blood Pressure 118/73 08/31/25 11:09 Pulse Oximetry 94 08/31/25 10:52 Oxygen Delivery Me thod Room Air 08/31/25 10:52 MDM - Chest Pain Medical Decision Making Patient presented with left anterior chest pain radiating to the back that began this morning. History of similar in the past couple years ago, where he had cardiac workup which was unremarkable, however did not receive coronary cath at that time. Heart score of 0, clinically appearing well at time of examination there are no adventitious heart or lung sounds appreciated at this time. Has somewhat concerning family history where his grandpa had heart attacks in early age, but otherwise no personal cardiac history of concern. EKG showing no rhythm abnormalities, no ST segment elevation normal axis and normal intervals. Chest x-ray unremarkable. Troponin is negative, rest of his lab work is normal. Low suspicion this is ACS, I will refer him to cardiology due to him having this pain in the past, as he may require update of his stress test echocardiogram and possible coronary cath as an outpatient. However there is no urgent reason for admission at this time though patient is urged to come back if his pain worsens, changes anyway, or he has any other new concerning symptoms. Patient agrees with this plan at this time. Lab Data 08/31/25 11:13 08/31/25 11:13 Radiology Impressions Chest X-Ray 08/31/25 11:06 IMPRESSION: The heart appears enlarged; this may be exaggerated by AP technique. The appearance is similar to prior. Laboratory Results WBC 8.70 10^3/uL (3.29-11.43) 08/31/25 11:13 RBC 5.05 10^6/uL (3.85-5.65) 08/31/25 11:13 Hgb 15.00 g/dL (11.27-16.99) 08/31/25 11:13 Hct 44.5 % (37-53) 08/31/25 11:13 MCV 88.1 fl (82-101) 08/31/25 11:13 MCH 29.7 pg (27-33) 08/31/25 11:13 MCHC 33.7 g/dL (30-55) 08/31/25 11:13 RDW 12.3 % (12.1-15.1) 08/31/25 11:13 Plt Count 352 10^3/cmm (157-399) 08/31/25 11:13 MPV 10.0 fL (7.4-10.4) 08/31/25 11:13 Neut % (Auto) 59.9 % 08/31/25 11:13 Lymph % (Auto) 28.5 % 08/31/25 11:13 [place] % (Auto) 8.4 % 08/31/25 11:13 Eos % (Auto) 2.2 % 08/31/25 11:13 Baso % (Auto) 0.8 % 08/31/25 11:13 Neut # (Auto) 5.21 10^3/uL (1.8-7.7) 08/31/25 11:13 Lymph # (Auto) 2.5 10^3/uL (0.8-4.8) 08/31/25 11:13 [place] # (Auto) 0.7 10^3/uL (0.2-0.9) 08/31/25 11:13 Eos # (Auto) 0.2 10^3/uL (0.0-0.8) 08/31/25 11:13 Baso # (Auto) 0.1 10^3/uL (0.0-0.1) 08/31/25 11:13 Nucleated RBC % (auto) 0 % 08/31/25 11:13 Nucleated RBCs # 0.0 /100WBC 08/31/25 11:13 Sodium 137 mmol/L (136-145) 08/31/25 11:13 Potassium 4.5 mmol/L (3.5-5.1) 08/31/25 11:13 Chloride 102 mmol/L (98-107) 08/31/25 11:13 Carbon Dioxide 23 mmol/L (22-29) 08/31/25 11:13 Anion Gap 16.5 (5-19) 08/31/25 11:13 BUN 11 mg/dL (6-20) 08/31/25 11:13 Creatinine 0.9 mg/dL (0.7-1.2) 08/31/25 11:13 GFR Calculation 95.5 mL/min (90-130) 08/31/25 11:13 Glucose 95 mg/dL (65-115) 08/31/25 11:13 Calculated Osmolality 283 mOsm/kg (285-295) L 11/30/25 11:13 Calcium 9.4 mg/dL (8.5-10.5) 08/31/25 11:13 Total Bilirubin 0.3 mg/dL (0.15-1.2) 08/31/25 11:13 AST 35 U/L (0-40) 08/31/25 11:13 ALT 74 U/L (0-41) H 08/31/25 11:13 Alkaline Phosphatase 117 U/L (40-130) 08/31/25 11:13 Troponin T Baseline < 6 ng/L (0-15) 08/31/25 11:13 Total Protein 7.6 g/dL (6.6-8.7) 08/31/25 11:13 Albumin 4.8 g/dL (3.5-5.2) 08/31/25 11:13 Globulin 2.8 g/dL (1.3-4.6) 08/31/25 11:13 Lipase 20 U/L (13-60) 08/31/25 11:13 All radiology interpretation(s) finalized by discharge Discharge Plan Discharge Patient Disposition: Home Clinical Impression: Chest pain Qualifiers: Chest pain type: unspecified Qualified Code(s): R07.9 - Chest pain, unspecified Condition: Stable Prescriptions: No Action naproxen 500 mg tablet 500 mg PO BID Qty: 30 0RF Discharge Orders: Discharge ED (Routine); Ordered 08/31/25 Ordered By: Antonio Vallejo Patient Instructions: Chest Pain (ED), Patient Portal & Noelle Instructions Activity Restrictions/Additional Instructions: Chest Pain Discharge Instructions Your Emergency Department Visit You came to the emergency department today with chest pain. The good news is that all of your tests today were normal. This means you did not have a heart attack, and your heart appears to be working well right now What Happens Next Even though your tests were normal, it is important to follow up with a heart doctor (oil burner journeyman) to make sure your heart stays healthy. You should see a oil burner journeyman within the next 2-4 weeks. If you already have a oil burner journeyman or primary care doctor, please call them within the next few days to schedule an appointment.If you do not have a oil burner journeyman, we will help arrange a referral for you. When to Return to the Emergency Department Come back to the emergency department right away or call 911 if you have: - Chest pain that is worse than before or does not go away with rest - Chest pain that spreads to your jaw, neck, arms, or back - Shortness of breath or trouble breathing - Sweating, nausea, or feeling like you might pass out - Fast or irregular heartbeat that does not go away Taking Care of Your Heart While you wait for your cardiology appointment, you can help protect your heart by: - Taking all of your medications exactly as prescribed - Not smoking or using tobacco products - Eating a healthy diet with plenty of fruits, vegetables, and whole grains - Staying physically active (talk to your doctor about what is safe for you) - Managing stress and getting enough sleep - Controlling your blood pressure, cholesterol, and blood sugar if you have diabetes Important Reminders - Keep your cardiology appointment even if you feel fine - Bring a list of all your medications to your appointment - Write down any questions you have for the oil burner journeyman - Tell the oil burner journeyman about any new symptoms you experience Questions? If you have questions before your cardiology appointment, you can call your primary care doctor or the emergency department where you were seen today. Print Language: Kyrgyz Coding Level of Care Code ED Ply Bander for Mireyag Fwana Heart Score HEART Score Components History: Slightly Suspicous EKG: Normal Age: Less than 45 yrs Risk Factors: No Risk Factors Known Troponin: Baseline Trop <16 ng/L HEART Score RESULT HEART Score: 0
[2025-08-31 11:09] VITALS: BP 118/73
[2025-08-31 11:21] LABS: Hematocrit 44.5 % (37-53); Hemoglobin 15.00 g/dL (11.27-16.99); Mean Corpuscular HGB Conc 33.7 g/dL (30-55); Mean Corpuscular Hemoglobin 29.7 pg (27-33); Mean Corpuscular Volume 88.1 fl (82-101); Nucleated Red Blood Cells % 0 %; Platelet Count 352 10^3/cmm (157-399); Red Blood Count 5.05 10^6/uL (3.85-5.65); White Blood Count 8.70 10^3/uL (3.29-11.43)
[2025-08-31 11:39] LABS: Alanine Aminotransferase 74 U/L (0-41); Albumin Level 4.8 g/dL (3.5-5.2); Alkaline Phosphatase 117 U/L (40-130); Anion Gap 16.5 (5-19); Aspartate Amino Transferase 35 U/L (0-40); Blood Urea Nitrogen 11 mg/dL (6-20); Calcium 9.4 mg/dL (8.5-10.5); Carbon Dioxide 23 mmol/L (22-29); Chloride 102 mmol/L (98-107); Globulin 2.8 g/dL (1.3-4.6); Glucose 95 mg/dL (65-115); Lipase 20 U/L (13-60); Osmolality Calculated 283 mOsm/kg (285-295); Potassium 4.5 mmol/L (3.5-5.1); Sodium 137 mmol/L (136-145); Total Protein 7.6 g/dL (6.6-8.7)
[2025-08-31 11:40] LABS: Troponin(5th) Baseline < 6 ng/L (0-15)
[2025-08-31 11:56] VITALS: BP 114/69; PULSE 65; O2SAT 94
--- NOTE | 2025-09-01 12:45 | DCPLANNER ---
messaged heart care for er f/u
== END 2025-08-31 11:57 | disposition home or self-care (01) ==
PROVIDERS: Emergency Provider Physician Assistant
DX: R07.9 Chest pain, unspecified (principal); Z72.0 Tobacco use
CPT/HCPCS: 36415; 71045; 80053; 83690; 84484; 85025; 99285

== ENCOUNTER → 2025-09-15 10:13 | Outpatient (BNVA) | payer SELFPAY | PROVIDERS: Referring Provider Physician Assistant; Visit Provider Internal Medicine Cardiovascular Disease | DX: R07.9 Chest pain, unspecified (principal) | CPT/HCPCS: 93005 ==

== ENCOUNTER 2025-09-24 09:41 | Outpatient (CLI) | payer SELFPAY ==
[2025-09-24 10:30] VITALS: BMI 34.2
--- NOTE | 2025-09-24 10:32 | NMCV_ITS ---
NM markie perf SPECT r/s* [id number] Sourav Marsh Age: 35 Gender: M : 1990 Exam Date: 09/24/2025 10:28 Ordering Phys: Aron Horan MD ([email or web address]) Technologist: OSITO Negro Exam Location: [facility] Indications: cp STRESS TEST Please see separate stress test report in [facility] for full findings IMAGE PROTOCOL Rest/Stress 1 Lexiscan Day Radiopharmaceutical Dose (mCi) Administration Site Administered by Rest: Tc-99m 11 IV OSITO Negro Sestamibi Stress:Tc-99m 32.8 IV OSITO Garcia Sestamibi Rest: 24-Sep-2025 60 Discovery 630 Stress: 24-Sep-2025 30 Discovery 630 0.4mg Lexiscan. Images obtained in supine and prone position. SPECT RESULTS Technical Quality: Good Raw Data Analysis: Normal Image Corrections: No attenuation or motion correction applied Summed Stress Score: 0 Summed Rest Score: 1 Summed Difference Score: 0 PERFUSION FINDINGS SPECT images demonstrate homogeneous tracer distribution throughout the myocardium. FUNCTIONAL RESULTS (calculated via Gated SPECT) Stress Image LV EF (%): 60 Stress EDV (mL):124 TID: 1.07 Stress ESV (mL):49 FUNCTIONAL FINDINGS: There is normal left ventricular systolic function. IMPRESSIONS Myocardial perfusion imaging is normal. Rigoberto Arshad MD (Electronically Signed) Final Date: 24 September 2025 12:41 S
--- NOTE | 2025-09-24 10:32 | ECG_ITS ---
[employer] Test Date: 2025-09-24 Pat Name: Sourav Marsh Department: Room: Gender: Male [employer] T[employer]: : 1990 Requested By: Aron Horan Order Number: [id number] Alexander MD: MARITA HAYS Interpretive Statements Lung unchanged pre/post procedure; Intraprocedure shortess of breath; Symptoms resoled by discharge NOTE: Please note that this is the electrocardiogram portion of the Lexiscan/Sestamibi stress test. The perfusion scan will be documented separately. DATA: Baseline heart rate was 71 beats per minute. Baseline blood pressure was 118/73 millimeters of mercury. Target heart rate was 184. Maximum heart rate achieved was 107. which was 58 % of the predicted target heart rate. Maximum blood pressure was 127/84 millimeters of mercury. The reason for ending the test was completion of the protocol. The patient did not experience any symptoms. ELECTROCARDIOGRAM: BASELINE: Sinus rhythm. Normal axis. Otherwise, no ST-T changes suggestive of ischemia noted. No arrhythmia noted. EXERCISE: After Lexiscan injection, no ST-T changes suggestive of ischemic noted. No arrhythmia noted. CONCLUSION: Please note due to baseline abnormality of the EKG specificity and sensitivity of the EKG portion of LexiScan MIBI stress test will be low 1. EKG not suggestive of ischemia 2. Lexiscan injection unremarkable. 3. Perfusion scan will be documented separately. Electronically Signed On 10-02-2025 16:58:16 [employer] by MARITA HAYS [email or web address]
[2025-09-24 11:18] VITALS: BP 118/77; PULSE 87
== END 2025-09-24 09:42 | disposition home or self-care (01) ==
LOC: CDL 09:42
PROVIDERS: Visit Provider Internal Medicine Cardiovascular Disease
DX: R07.9 Chest pain, unspecified (principal)
CPT/HCPCS: 36415; 78452; 93017; 96374; A9500; J2785